=== PATIENT | male | born 2000 | race African-American/Black ===

== ENCOUNTER 2022-10-04 19:50 | Inpatient (IN) ==
[2022-10-04] MEDS ORDERED: fentaNYL 100 MCG/2 ML VIAL IV STA (20:00)
[2022-10-04] MEDS ORDERED: LACTATED RINGERS 1,000 ML IV STA (20:00)
[2022-10-04] MEDS ORDERED: ONDANSETRON 4 MG/2 ML VIAL IV STA (20:00)
[2022-10-04] MEDS ORDERED: SODIUM CHLORIDE 0.9% 1,000 ML IV STA (20:00)
[2022-10-04 20:07] LABS: Basophils % 0.3 % (0.0-0.8); Eosinophils % 0.3 % (0.00-10.9); Hematocrit 42.5 VOL% (42.0-52.0); Hemoglobin 13.8 GM/DL (14.0-18.0); Immature Granulocytes % 0.3 %; Immature Granulocytes Absolute 0.03 #; Lymphocytes # 2.3 10*3/uL (1.4-4.0); Lymphocytes % 22.9 % (21.2-54.2); Mean Corpuscular HGB Conc 32.5 GM/DL (32-36); Mean Corpuscular Volume 88.4 FL (87-102); Mean Platelet Volume 11.7 FL (9.6-12.0); Monocytes # 0.7 10*3/uL (0.11-0.8); Monocytes % 6.8 % (1.7-12.7); Neutrophils % 69.4 % (38.7-73.9); Platelet Count 199 T/CUMM (130-400); Red Blood Count 4.81 MC/CUMM (3.8-5.5); Red Cell Distribution Width 13.2 % (9.3-17.3); White Blood Count 10.2 T/CUMM (4-12)
[2022-10-04 20:16] LABS: INR 1.1; PT Patient Result 11.8 SECS (10.1-12.1); Partial Thromboplastin Time 23.4 SECS (23.7-32.9)
[2022-10-04 20:22] LABS: Alanine Aminotransferase 22 U/L (16-61); Albumin 4.3 G/DL (3.4-5.0); Alkaline Phosphatase 62 U/L (45-117); Aspartate Amino Transferase 30 U/L (0-37); Blood Urea Nitrogen 13 MG/DL (7-18); Calcium 8.7 MG/DL (8.5-10.1); Carbon Dioxide 25 MMOL/L (21-32); Chloride 107 MMOL/L (98-107); Glucose 134 MG/DL (74-106); Osmolality,Calculated 278.5 MOS/KG (273-304); Potassium 3.1 MMOL/L (3.5-5.1); Sodium 139 MMOL/L (136-145); Total Protein 7.2 G/DL (6.4-8.2)
[2022-10-04 20:31] LABS: Lymphocytes 18 % (20-55); Total Cells Counted 100
[2022-10-04 20:32] LABS: Platelet Estimate Adequate
[2022-10-04] MEDS ORDERED: ACETAMINOPHEN 325 MG TABLET PO PRN (20:34)
[2022-10-04] MEDS ORDERED: ONDANSETRON 4 MG/2 ML VIAL IV PRN (20:34)
[2022-10-04] MEDS: DEXTROSE 5% LACTATED RINGERS 1,000 ML IV SCH (21:49)
[2022-10-04 23:33] LABS: Barbiturates Screen,Urine Negative (Negative); Benzodiazepines Screen,Urine Negative (Negative); Cannabinoid Screen,Urine Negative (Negative); Opiate Screen,Urine Negative (Negative); Phencyclidine Screen,Urine Negative (Negative)
[2022-10-05] MEDS: HYDROmorphone 1 MG/1 ML SYRINGE IV PRN ×2 (02:40→07:37)
[2022-10-05 06:01] LABS: Basophils % 0.2 % (0.0-0.8); Eosinophils % 0.1 % (0.00-10.9); Hematocrit 39.6 VOL% (42.0-52.0); Hemoglobin 12.7 GM/DL (14.0-18.0); Immature Granulocytes % 0.3 %; Immature Granulocytes Absolute 0.03 #; Lymphocytes # 1.5 10*3/uL (1.4-4.0); Mean Corpuscular HGB Conc 32.1 GM/DL (32-36); Mean Corpuscular Volume 89.8 FL (87-102); Mean Platelet Volume 12.4 FL (9.6-12.0); Monocytes # 0.8 10*3/uL (0.11-0.8); Monocytes % 8.6 % (1.7-12.7); Neutrophils % 74.8 % (38.7-73.9); Platelet Count 157 T/CUMM (130-400); Red Blood Count 4.41 MC/CUMM (3.8-5.5); Red Cell Distribution Width 13.4 % (9.3-17.3); White Blood Count 9.1 T/CUMM (4-12)
[2022-10-05 06:15] LABS: Calcium 8.3 MG/DL (8.5-10.1); Osmolality,Calculated 278.4 MOS/KG (273-304); Potassium 3.5 MMOL/L (3.5-5.1)
[2022-10-05] MEDS: DEXTROSE 5% LACTATED RINGERS 1,000 ML IV SCH ×2 (06:17→16:28)
[2022-10-05] MEDS: PANTOPRAZOLE 40 MG TABLET PO SCH (08:55)
[2022-10-06] MEDS: DEXTROSE 5% LACTATED RINGERS 1,000 ML IV SCH ×2 (00:28→05:02)
[2022-10-06] MEDS: PANTOPRAZOLE 40 MG TABLET PO SCH (09:55)
[2022-10-06 11:48] VITALS: BP 102/54
== END 2022-10-06 12:45 | disposition home or self-care (01) | DRG 135 ==
LOC: EDBD → EDUNIT# → N.ED 19:50 → N.EDINP 20:34 → N.3E 22:32
PROVIDERS: ADMIT Student in an Organized Health Care Education/Training Program; ATTEND Student in an Organized Health Care Education/Training Program